=== PATIENT | female | born 1995 | race Caucasian/White ===

== ENCOUNTER 2017-11-05 12:22 | Emergency (ER) | payer MEDICAID, OTHER ==
[~2017-11-05] VITALS: Ht 172.7 cm; Wt 69.9 kg
[2017-11-05 12:43] VITALS: BP 109/66
--- NOTE | 2017-11-05 12:43 | NUR ---
PT AMBULATED TO BED 12.
--- NOTE | 2017-11-05 12:44 | NUR ---
Note undone in EDM - 11/05/17 at 1314 by [email or web address] BIB FAMILY C/O GENERALIZED ABDOMINAL PAIN,N/V X 3 DAY. DENIES DIARRHEA. SKIN IS PINK/WARM/DRY; AAOX4 WITH EVEN AND STEADY GAIT; LUNGS CLEAR BL; HR EVEN AND REGULAR;PATIENT STATES PAIN OF 10/10 AT THIS TIME; VSS; PATIENT POSITIONED FOR COMFORT; HOB ELEVATED; BEDRAILS UP X2; BED DOWN. ER MADE AWARE OF PT STATUS.
--- NOTE | 2017-11-05 12:44 | NUR ---
22f bib self with c/o hematuria, 10/10 constant generalized abd pain, yellow vaginal discharge, and nausea. Pt denies any vomitting, vaginal bleeding, fevers, or diarrhea. Pt reports of ovarian cyst removal surgery on 2015. Pt is aox4 with steady gait. RR are even and unlabored. No acute distress. Awaiting er md dsouza. All needs met at this time. Will continue to monitor.
[2017-11-05 14:25] VITALS: BP 112/53
--- NOTE | 2017-11-05 14:25 | NUR ---
Patient discharged with v/s stable. Written and verbal after care instructions given and explained. Patient alert, oriented and verbalized understanding of instructions. Ambulatory with steady gait. All questions addressed prior to discharge. ID band removed. Patient advised to follow up with PMD. Rx of Cephalexin and Omeprazole given. Patient educated on indication of medication including possible reaction and side effects. Opportunity to ask questions provided and answered.
== END 2017-11-05 14:25 | disposition home or self-care (01) ==
LOC: MED 12:22
DX: N39.0 Urinary tract infection, site not specified (principal); K21.9 Gastro-esophageal reflux disease without esophagitis
CPT/HCPCS: 81002; 81025; 99283

== ENCOUNTER 2018-06-11 16:11 | Emergency (ER) | payer MEDICAID ==
[~2018-06-11] VITALS: Ht 172.7 cm; Wt 68.0 kg
[2018-06-11 16:23] VITALS: BP 107/58
[2018-06-11 18:22] VITALS: BP 96/60
== END 2018-06-11 18:22 | disposition home or self-care (01) ==
LOC: MED 16:11
DX: I49.3 Ventricular premature depolarization (principal)
CPT/HCPCS: 71045; 99283; Q0092